=== PATIENT | male | born 1995 | race African-American/Black ===

== ENCOUNTER 2022-05-27 22:27 | Emergency (ER) | payer SELFPAY ==
[~2022-05-27] VITALS: Ht 177.8 cm; Wt 68.0 kg
[2022-05-27 23:00] VITALS: BP 122/65
[2022-05-27] MEDS ORDERED: LIDOCAINE 1%-EPI 1:100,000 20 ML VIAL ONE (23:43)
--- NOTE | 2022-05-27 23:45 | NUR ---
EMT AT PT'S BEDSIDE TO CLEAN WOUND
[2022-05-28] MEDS ORDERED: LIDOCAINE 2% 20 ML MDV TP ONE
--- NOTE | 2022-05-28 00:19 | NUR ---
DR MATTHEW DECKER AT PT'S BEDSIDE FOR SUTURES TO UPPER LIP
--- NOTE | 2022-05-28 01:15 | NUR ---
Patient discharged to home in stable condition. Written and verbal after care instructions given. Patient verbalizes understanding of instruction.
== END 2022-05-28 01:16 | disposition home or self-care (01) ==
LOC: ER 22:30
DX: S01.511A Laceration without foreign body of lip, initial encounter (principal); W50.0XXA Accidental hit or strike by another person, initial encounter; Y93.67 Activity, basketball; Y92.89 Other specified places as the place of occurrence of the external cause; Y99.8 Other external cause status
CPT/HCPCS: 99282; 12013; A6403; J3490